=== PATIENT | male | born 1985 | race Caucasian/White ===

== ENCOUNTER 2024-06-19 09:55 | Outpatient (CLI) | payer OTHER, SELFPAY ==
--- NOTE | 2024-06-19 09:12 | DI.RAD_ITS ---
Exam(s) XR KNEE RT 3V AP,LAT,JOSE EXAM: XR KNEE RT 3V AP,LAT,JOSE CLINICAL HISTORY: RIGHT KNEE PAIN. TECHNIQUE: 2D digital imaging was performed. COMPARISON: No exams were available for comparison FINDINGS: 3 views No evidence of fracture nor prominent joint effusion. No degenerative changes evident. Bone density normal. No osseous lesions. No osteochondral defects seen. IMPRESSION: No significant osseous findings on these three views of the right knee. DATA REPOSITORY: RADIATION DOSE DELIVERED:
== END 2024-06-19 09:56 | disposition home or self-care (01) ==
LOC: DIORS 09:55
PROVIDERS: PCP Physician Assistant; Visit Provider Student in an Organized Health Care Education/Training Program
DX: M25.561 Pain in right knee (principal)
CPT/HCPCS: 73562

== ENCOUNTER 2024-07-03 08:36 | Outpatient (CLI) | payer OTHER, SELFPAY ==
--- NOTE | 2024-07-03 08:00 | DI.RAD_ITS ---
Exam(s) XR KNEE LT 3V AP,LAT,JOSE EXAM: XR KNEE LT 3V AP,LAT,JOSE CLINICAL HISTORY: LEFT KNEE PAIN. TECHNIQUE: 2D digital imaging was performed. Three views. COMPARISON: CR XR KNEE RT 3V AP,LAT,JOSE from 06/19/2024 FINDINGS: BONES: No acute fracture is present. No bony destructive lesion is seen. JOINTS: The knee is normally aligned. The joint spaces are maintained. No joint effusion is seen. SOFT TISSUE: Normal. IMPRESSION: Normal radiographs of the left knee. DATA REPOSITORY: RADIATION DOSE DELIVERED:
== END 2024-07-03 08:37 | disposition home or self-care (01) ==
LOC: DIORS 08:36
PROVIDERS: PCP Physician Assistant; Visit Provider Student in an Organized Health Care Education/Training Program
DX: M25.562 Pain in left knee (principal)
CPT/HCPCS: 73562

== ENCOUNTER 2024-07-30 01:38 | Outpatient (CLI) | payer OTHER, SELFPAY ==
--- NOTE | 2024-07-30 06:15 | DI.MRI_ITS ---
Exam(s) MR LOWER JOINT LT WO EXAM: MR LOWER JOINT LT WO CLINICAL HISTORY: L KNEE PAIN,internal derangement lt knee,m239.2 TECHNIQUE: Multiplanar multisequence MRI of the left knee was performed. COMPARISON: Outside MR KNEE RT for 4 05/07/2024. This is an MRI of the opposite knee. CR XR KNEE LT 3V AP,LAT,JOSE from 07/03/2024 FINDINGS: EFFUSION: There is a E moderate size knee joint effusion. There is no Churchill cyst in the popliteal fo ssa. MARROW:There is no evidence of fracture, pivot-shift bone contusion, nor osteochondral defects.. The re are no significant osseous lesions. A small benign bone island is noted in the lateral aspect of the fibular head. PATELLOFEMORAL COMPARTMENT: The quadriceps tendon is intact. The patellar ligament is intact. There are foci of multiple superficial focal cartilage loss in the retropatellar cartilage over the m id facet level just above the mid equator of the patella. There is no osteochondral defect. No suba rticular signal abnormality in the patella.There is no intraosseous signal to suggest recent patellar dislocation. There are no patellar retinacular tears. CRUCIATE LIGAMENTS: The anterior cruciate ligament is intact.The posterior cruciate ligament is intac t. MEDIAL COMPARTMENT/MEDIAL MENISCUS: There is a horizontal tear of the posterior horn of the medial me niscus which extends from the lateral 3rd to and including the root. There is also an oblique compon ent of the tear in the outer 3rd of the posterior horn. There are displaced/flipped meniscal fragmen ts. The anterior horn is intact. There is only minimal articular cartilage thinning over the main weight-bearing surface of the medial femoral condyle. There are no large chondral defects, osteochondral defects, subarticular marrow edema, nor osteophyte s evident in the medial compartment. MEDIAL COLLATERAL LIGAMENT: Intact LATERAL COMPARTMENT/LATERAL MENISCUS: There is no evidence of lateral meniscal tear.There are no gonzalez dral defects, osteochondral defects, subarticular marrow edema, nor osteophytes evident. ILIOTIBIAL BAND: Intact LATERAL COLLATERAL LIGAMENT COMPLEX: The fibular collateral ligament is intact. The biceps femoris t endon is intact.Popliteus muscle and tendon are intact. IMPRESSION: 1. There is a predominantly horizontal tear of the posterior horn of the medial meniscus which extend s from the lateral third to and including the meniscal root. There is also a smaller oblique compone nt tear in the lateral 3rd. The anterior horn of the medial meniscus is intact. There are minimal d egenerative changes in the medial compartment. No osteochondral defects. 2. No significant findings in the lateral compartment 3. There is surface chondromalacia patella over the mid facet level at the mid equator of the patella . This involves the more superficial 3rd of the retropatellar cartilage and does not extend to the p osterior patellar surface. There is no abnormal signal in the patella. 4. There are no cruciate nor collateral ligament tears. 5. There is a moderate size joint effusion. There is no Churchill's cyst. There are no obvious loose i ntra articular bodies DATA REPOSITORY:
== END 2024-07-30 01:58 ==
LOC: DI 01:38
PROVIDERS: PCP Physician Assistant; Visit Provider Student in an Organized Health Care Education/Training Program
DX: M23.322 Other meniscus derangements, posterior horn of medial meniscus, left knee (principal)
CPT/HCPCS: 73721

== ENCOUNTER 2025-02-21 08:01 | Day surgery (SDC) | payer OTHER, SELFPAY ==
--- NOTE | 2025-02-20 16:20 | W.ANESPRE ---
General Info Date of Service Date Performed: 02/21/25 Height: 6 ft Weight: 94.347 kg Body Mass Index (BMI): 28.2 Surgical Procedure: Operation Date: 02/21/25 10:40 Proposed Procedure Side Surgeon p Knee Arthroscopy, Partial Medial Meniscectomy, Possible Lt Medial Meniscus Repair Bilateral Franc Laura MD Meds Allergies and Home Medications Allergies Allergy/AdvReac Type Severity Reaction Status Date / Time Penicillins Allergy Intermediate Hives Verified 02/21/25 08:30 Home Medication ?Medication ?Instructions ?Recorded triamcinolone acetonide 0.1 % 1 applic topical BID PRN 05/23/24 topical cream lorazepam 0.5 mg tablet 0.5 mg PO BID PRN 02/20/25 aspirin 81 mg capsule 81 mg PO DAILY prevent blood clot 02/21/25 14 days #14 caps naproxen 250 mg tablet 250 - 500 mg (1 - 2 x 250 mg) PO 02/21/25 BID PRN moderate pain and swelling #40 tabs oxycodone 5 mg tablet 5 - 10 mg (1 - 2 x 5 mg) PO .q4-6h 02/21/25 PRN severe pain #18 tabs Current Visit Medications: Current Medications Generic Name Dose Route Start Last Admin Trade Name Freq PRN Reason Stop Dose Admin Ringer's Solution 1,000 mls @ 30 mls/hr 02/21/25 06:00 IV 02/21/25 23:59 INFUSION PALOMO Cefazolin Sodium/Dextrose 2 gm in 50 mls @ 100 mls/hr 02/21/25 06:00 Ancef Duplex IVPB 02/21/25 23:59 PREOP PALOMO Tranexamic Acid/Sodium Chloride 1,000 mg in 100 mls @ 600 mls/hr 02/21/25 06:00 IVPB 02/21/25 23:59 PREOP PALOMO Sodium Chloride 0 ml 02/21/25 06:00 Normal Saline Flush 10 Ml Syr IV 02/21/25 23:59 PRN PRN Sodium Chloride 0 ml 02/21/25 06:00 Normal Saline 10 Ml Vial IJ 02/21/25 23:59 DIRECTED PRN Sterile Water 0 ml 02/21/25 06:00 Water,Injection,Sterile 10 Ml Vial IJ 02/21/25 23:59 DIRECTED PRN PFSH Active Problems Active Problems: Problem Status Onset Code Tear of medial meniscus of left knee Acute S83.242A Internal derangement of left knee Acute M23.92 Tear of medial meniscus of right knee Acute S83.241A Medical History Medical History (Updated 02/21/25 @ 08:[address]) Foreign body, eye 02/17 injury, 02/18 metallic piece removed [facility] Surgical History Surgical History H/O removal of cyst removed from tailbone ~20 years or so ago Hx of appendectomy age 4 Tobacco Smoking/Tobacco Use Status: Never Alcohol Alcohol Intake: current Alcohol intake frequency: holidays/special occasions only Substance Use Substance use: Never Substance use type: does not use Vital Signs and Lab Results Vital Signs Most Recent Vital Signs in EMR: Temp Pulse Resp BP Pulse Ox 36.5 C 69 17 126/87 99 02/21/25 08:05 02/21/25 08:05 02/21/25 08:05 02/21/25 08:05 02/21/25 08:05 Anesthesia Assessment and Plan Anesthesia History Personal History: No History of Anesthesia Complications Family History: No Family History of Anesthesia Complications Exercise Tolerance Exercise Tolerance: Metabolic Equivalents>4 Pertinent Negatives Pertinent Negatives: No Symptoms of GERD, No Major Cardiovascular Symptoms or Complaints, No Major Pulmonary Symptoms or Complaints and No History of CVA/TIA Cardiac & Pulmonary Exam Cardiac Exam: Normal S1/S2 Heart Sounds Pulmonary Exam: Clear Bilateral Breath Sounds Implantable Cardiac Device Does patient have a Pacemaker or an ICD?: No Airway Exam Known Difficult Airway: No Mallampati Class: 2 Mouth Opening: Normal (> 3cm) Thyromental Distance: Greater than 3 cm Facial Hair: Full [place]ck Range of Motion: Full ROM Neck Circumference: Normal Teeth Condition: Normal Dentition ASA Classification ASA Score: ASA 1 Emergency Case?: No NPO Status NPO Status: NPO Clears >2 hours, Solids >8 hours Anesthesia Plan Resuscitation Status: Full Code Anesthesia Technique: General Anesthesia Airway Planned: LMA Monitors Used: Standard Monitors Preoperative Comments:: During preop assessment, pt noted to have redness in R eye from irritant at home a couple of days ago. Plan to put ointment in eye following anesthesia induction and before eye tape placement. Dr Martínez assessed pt and made plan for followup for this afternoon 02/21.
[2025-02-21] VITALS (20 sets, daily range): BP systolic 96–146; BP diastolic 32–87; PULSE 62–74; RESP 14–20; TEMP 36.4–36.5; O2SAT 91–100; BMI 28.2
--- NOTE | 2025-02-21 07:11 | W.PM.DSUDISC ---
Date of service: 02/21/25 Discharge Plan Disposition Patient Disposition: Home Condition: Stable Discharge Details Attending Provider: Franc Laura Primary Care Provider: Prabhu Ramirez Home Meds and New Rx's Prescriptions: New naproxen 250 mg tablet 250 - 500 mg PO BID PRN (Reason: moderate pain and swelling) Qty: 40 0RF oxycodone 5 mg tablet 5 - 10 mg PO .q4-6h MDD 30 mg PRN (Reason: severe pain) Qty: 18 0RF aspirin 81 mg capsule 81 mg PO DAILY 14 Days Qty: 14 0RF Continued triamcinolone acetonide 0.1 % cream 1 applic topical BID PRN lorazepam 0.5 mg tablet 0.5 mg PO BID PRN Patient Comments: TAKE ONE TABLET BY MOUTH TWICE A DAY NEEDED FOR ANXIETY Discharge Instructions Additional Instructions: Surgery: Bilateral knee arthroscopy with partial medial meniscectomy and patellar chondroplasty 02/21/25 Activity: Weightbearing as tolerated. Advance range of motion as comfort allows. Restore full knee extension to soon as possible. Encourage early quadriceps isometrics. Use crutches for a few weeks as needed for comfort and support. Recommend avoiding sports, pivoting, and squatting for at least 6-8 weeks. A physical therapy prescription will be sent electronically to start in about 3 weeks. Prescriptions: Aspirin 81 mg take 1 daily to prevent a blood clot for 14 days, starting tomorrow Naproxen 250 mg take 1-2 every 12 hours with a meal as needed for moderate pain Oxycodone 5 mg take 1-2 every 4-6 hours as needed for severe pain You may use [id number] Tylenol (acetaminophen) as needed for mild pain. These pain medications may be taken all at once or in different combinations as needed. Also, recommend Colace (docusate) as a stool softener as surgery and pain medicine cause constipation. You may try [id number] diphenhydramine (Benadryl) 25-50 mg nightly as a sleep aid Dressings: Leave dressing in place for 3 days. May then remove and leave open to air or cover incisions with Band-Aids. Leave the sticky Steri-Strips in place until they fall off or remove them after you shower. May shower after 5 days. Follow-up: 10-[address] Laura. Please also follow-up at [facility] at 2 PM today for Right eye evaluation from metallic foreign body injury from a couple days ago. You may take off the leg compression stockings this evening at home. You may also leave them on a few days longer if you have a history of leg swelling or edema. Let us know right away if you develop any redness, drainage, fevers, chest pain, or trouble breathing. Do not drink alcohol or drive for at least 24 hours after anesthesia. Please call the office during business hours with any questions or concerns. Stand Alone Forms: Portal Information Discharge Orders Discharge Orders: Discharge Order (Routine); Ordered 02/21/25 Ordered By: Janet North DS: Diagnosis Discharge Diagnosis (1) Tear of medial meniscus of right knee: Status: Acute (2) Tear of medial meniscus of left knee: Status: Acute (3) Chondromalacia of both patellae: Status: Acute
--- NOTE | 2025-02-21 07:31 | ROE_ITS ---
Operative Note Operative Note PRE-OP DIAGNOSIS: Right knee 1. Medial meniscus tear 2. Patellar lateral facet cartilage tear Left knee 3. Medial meniscus tear 4. Patellar chondromalacia POST-OP DIAGNOSIS: same PROCEDURE: Right knee 1. Partial medial meniscectomy, CPT #53196 2. Chondroplasty, CPT #40648: Patella Left knee 3. Partial medial meniscectomy, CPT #62186 4. Chondroplasty, CPT #23121: Patella SURGEON: Franc Laura CIGARETTE TIPPER: Janet North ANESTHESIA TYPE: Local By Surgeon and General LMA/ETT Refer to Anesthesia Record ESTIMATED BLOOD LOSS: 10 PATHOLOGY: none sent TOURNIQUET TIME: 0 Patient was transported to: PACU Patient's condition: stable Indications: Please see complete medical record for details. Findings: Exam under anesthesia: Right- full range of motion, stable Left- full range of motion, stable Arthroscopic findings: Right- moderately sized posterior horn vertical to horizontal medial meniscus tearing with intact root, majority of the body, anterior horn. Small areas of moderate chondromalacia medial femoral condyle. Small area of moderate grade central to superior patellar facet chondromalacia. Intact ACL lateral meniscus lateral compartment. Left-moderately sized posterior horn also vertical to horizontal medial meniscus tearing somewhat deeper and larger than the tear on the contralateral side but still mostly involving the posterior horn and excluding the body anterior horn and root was stable. More moderately sized area of moderately significant patellar undersurface central to superior fissuring and surrounding chondromalacia. Also more moderate sized areas of moderate to significant medial femoral condyle cartilage loss thinning chondromalacia. Intact ACL lateral meniscus lateral compartment. Procedure Description: In the operating room, general anesthesia was induced. The patient was positioned supine on the operating room table. All bony prominences were well- padded. Preoperative antibiotics were administered. Bilateral knees were prepped and draped in the usual sterile fashion. The correct patient, procedur e, and side of the procedure were all verified prior to incision. Exam under anesthesia was performed. 10 cc of 0.25% bupivacaine containing epinephrine was infiltrated about the planned anteromedial and anterolateral knee arthroscopy portals on each knee. Starting with the RIGHT knee, the portals were established and a complete diagnostic arthroscopy was performed with relevant findings detailed above. The torpedo shaver was used to smooth and resect irregular cartilage surface and loose cartilage tissue around the margins of the central to superior patella working alternating through each portal then using manual manipulation of the patella. Care was taken to reduce the worst of the cartilage lesion while preserving as much cartilage is reasonable. The medial meniscus was carefully examined. Using a combination of hand instruments including meniscal biters and a power shaver and working through the anteromedial and anterolateral portals the meniscus was debrided of all torn ti ssue to a stable margin. Care was taken to preserve as much meniscus tissue was possible. The meniscal remnant was probed and found to have a stable margin, stable root, and no other tear. Under direct arthroscopic visualization an 18-gauge needle was passed into the knee from superolateral into the suprapatellar pouch. The knee was copiously irrigated with arthroscopic fluid until there was a clear effluent before being drained of all fluid. The anteromedial and anterolateral portals were closed in 3-0 Monocryl in a buried interrupted fashion. 20 cc of 0.25% bupivacaine with epinephrine was infiltrated into the knee through the previously placed needle. Next, the LEFT knee portals were established and a complete diagnostic arthroscopy was performed with relevant findings detailed above. Similarly, the torpedo shaver was used to debride the central superior cartilage lesion with this side being slightly more significant and resecting some fissuring and loose cartilage margin edges while still contouring and preserving cartilage that had some softening and chondromalacia around the margins of the higher grade area of the lesion. Also similar the posterior horn the medial meniscus was evaluated with meniscus biters used to resect the tearing and the torpedo shaver used to achieve optimal contour and debride the meniscus of torn tissue to a stable margin while preserving intact tissue at the root body and anterior horn. The torpedo shaver was also used to smooth some irregularities on this medial femoral condyle, which had more significant chondromalacia in the other side. Under direct arthroscopic visualization an 18-gauge needle was passed into the knee from superolateral into the suprapatellar pouch. The knee was copiously irrigated with arthroscopic fluid until there was a clear effluent before being drained of all fluid. The anteromedial and anterolateral portals were closed in 3-0 Monocryl in a buried interrupted fashion. 20 cc of 0.25% bupivacaine with epinephrine was infiltrated into the knee through the previously placed needle. Mastisol, Steri-Strips, and 4 x 4 gauze were applied over the bilateral knee portals. Both knees were then wrapped gently with an RYAN comressive bandage. The patient awoke from anesthesia without complication and was transferred to the recovery room in a stable condition. I would consider future medial unicondylar knee arthroplasty on both knees for what is likely to progress to medial compartment arthritis as long as there are minimal to no patellar symptoms given the patella cartilage problems as well. If symptoms involve the medial and anterior compartments, total knee arthroplasty would likely be best. Date of Procedure: 02/21/25
[2025-02-21] MEDS: Lactated Ringers 1,000 ML 30 ML IV (08:55)
[2025-02-21] MEDS: ceFAZolin 2 GM/50 ML BAG IVPB (10:32)
[2025-02-21] MEDS: TRANEXAMIC ACID/SOD. CHL. 1,000 MG/100 ML BAG 600 MG IVPB (10:39)
[2025-02-21] MEDS: Bupivacaine 0.25% Pres-Free W/EPI 30 ML VIAL ×2 (11:15→11:30)
[2025-02-21] MEDS: EPINEPHrine 10 MG/10 ML ML (11:35)
--- NOTE | 2025-02-21 12:54 | W.ANESPOSTOP ---
Postoperative Evaluation Date, Time and Location Date Performed: 02/21/25 Time Performed: 12:56 Patient Location: Day Surgery Unit Vital Signs Most Recent Imported Vital Signs: Most Recent Vital Signs Temp Pulse Resp BP Pulse Ox 36.5 C 67 14 120/63 96 02/21/25 12:30 02/21/25 12:36 02/21/25 12:32 02/21/25 12:36 02/21/25 12:32 Pain Score Most Recent Pain Score: Most Recent Pain Score Pain Level 0 02/21/25 12:30 Assessment Mental Status: Awake (Alert & Oriented to Patient Baseline) Airway and Respiratory Function: Patent airway with normal (patient baseline) respiratory exam Cardiovascular Function: Hemodynamically Stable Hydration Status: Adequately Hydrated Nausea & Vomiting: No Nausea or Vomiting Pain: Pt. Denies Any Pain Peripheral Nerve Block: Patient did not receive a nerve block
== END 2025-02-21 13:50 | disposition home or self-care (01) ==
PROVIDERS: PCP Physician Assistant; Visit Provider Student in an Organized Health Care Education/Training Program
PROC: (CPT 29870; principal; 2025-02-21 10:30)
DX: S83.241A Other tear of medial meniscus, current injury, right knee, initial encounter (principal); S83.242A Other tear of medial meniscus, current injury, left knee, initial encounter; M22.41 Chondromalacia patellae, right knee; M22.42 Chondromalacia patellae, left knee; X58.XXXA Exposure to other specified factors, initial encounter
CPT/HCPCS: 29881; 29877; J0131; J0690; J1100; J1885; J2003; J2270; J2405; J2704; J3010